=== PATIENT | female | born 1975 | race Caucasian/White ===

== ENCOUNTER 2020-05-17 21:02 | Emergency (ER) | payer OTHER ==
[~2020-05-17] VITALS: Ht 170.1 cm; Wt 99.8 kg
[~2020-05-17 21:02] MED LIST: AMOXICILLIN500 MG PO; AUGMENTIN 875 M1 TAB PO; CLARITIN10 MG PO; CORTISPORIN SUS10 ML OT; DIFLUCAN150 MG PO; PHENERGAN W/DM120 ML PO; ULTRAM50 MG PO; VIBRAMYCIN100 MG PO; VICODIN ES 7501 TAB PO
[2020-05-17] MEDS ORDERED: ROBAXIN-750750 MG PO (21:43)
[2020-05-17] MEDS ORDERED: NAPROSYN500 MG PO (21:43)
== END 2020-05-17 22:07 | disposition home or self-care (01) ==
LOC: ED 21:02
DX: S16.1XXA Strain of muscle, fascia and tendon at neck level, initial encounter (principal); S40.012A Contusion of left shoulder, initial encounter; Z98.890 Other specified postprocedural states; W00.9XXA Unspecified fall due to ice and snow, initial encounter; Y93.89 Activity, other specified; Y92.89 Other specified places as the place of occurrence of the external cause; Y99.8 Other external cause status

== ENCOUNTER 2020-08-27 15:38 | Emergency (ER) | payer OTHER ==
[~2020-08-27] VITALS: Ht 170.1 cm; Wt 101.2 kg
[~2020-08-27 15:38] MED LIST changes: +NAPROSYN500 MG PO; +ROBAXIN-750750 MG PO
[2020-08-27] MEDS ORDERED: CEFDINIR300 MG PO (17:55)
== END 2020-08-27 18:04 | disposition home or self-care (01) ==
LOC: ED 15:38
DX: H66.93 Otitis media, unspecified, bilateral (principal); Z79.899 Other long term (current) drug therapy

== ENCOUNTER 2020-10-08 18:35 | Emergency (ER) | payer OTHER ==
[~2020-10-08] VITALS: Wt 101.2 kg
[~2020-10-08 18:35] MED LIST changes: +CEFDINIR300 MG PO
[2020-10-08 19:32] LABS: BILIRUBIN Negative (Negative); BLOOD Negative (Negative); CLARITY Clear (Clear); COLOR Yellow (Yellow); GLUCOSE 3+ (Negative); KETONE Negative (Negative); LEUKO ESTERASE Negative (Negative); NITRITE Negative (Negative); SPECIFIC GRAVITY >= 1.030 (1.001-1.030)
[2020-10-08 19:41] LABS: BACTERIA 1+; WBC 16-20 wbc/hpf (0-5)
[2020-10-08 19:42] LABS: YEAST 1+
== END 2020-10-08 20:02 | disposition home or self-care (01) ==
LOC: ED 18:35
PROVIDERS: Physician Assistant
DX: B37.3 Candidiasis of vulva and vagina (principal); E11.9 Type 2 diabetes mellitus without complications; Z79.2 Long term (current) use of antibiotics; Z79.899 Other long term (current) drug therapy; Z98.890 Other specified postprocedural states

== ENCOUNTER 2020-11-11 13:47 | Emergency (ER) | payer OTHER ==
[~2020-11-11] VITALS: Wt 99.8 kg
[2020-11-11] MEDS ORDERED: Orphenadrine C100 MG PO (14:27)
[2020-11-11] MEDS ORDERED: MEDROL DOSEPAK4 MG PO (14:27)
[2020-11-11] MEDS ORDERED: CYCLOBENZAPRINE5 M3 PO (14:57)
== END 2020-11-11 14:59 | disposition home or self-care (01) ==
LOC: ED 13:47
DX: M54.42 Lumbago with sciatica, left side (principal); Z79.2 Long term (current) use of antibiotics; Z79.899 Other long term (current) drug therapy; Z98.890 Other specified postprocedural states

== ENCOUNTER 2020-11-19 07:03 | Emergency (ER) | payer OTHER ==
[~2020-11-19] VITALS: Ht 170.1 cm; Wt 99.8 kg
[~2020-11-19 07:03] MED LIST changes: +CYCLOBENZAPRINE5 M3 PO; +MEDROL DOSEPAK4 MG PO; +Orphenadrine C100 MG PO
[2020-11-19 08:20] LABS: HEMATOCRIT 49.9 % (37.0-47.0); MEAN CELL VOLUME 92.4 fl (81.0-99.0); MEAN CORPUSCULAR HGB 31.9 pg (27.0-31.0); MEAN CORPUSCULAR HGB CONC 34.5 g/dl (33.0-37.0); MEAN PLATELET VOLUME 11.6 fl (9.6-12.3); PLATELET COUNT AUTOMATED 210 10*3/uL (130-400); RED CELL DISTRI WIDTH 12.7 % (0-14.5); WHITE BLOOD COUNT 18.8 10*3/uL (4.8-10.8)
[2020-11-19 08:23] LABS: ALBUMIN 3.3 gm/dl (3.1-4.5); ALKALINE PHOSPHATASE 85 U/L (45-117); BUN 8 mg/dl (7-24); CHLORIDE 101 mmol/L (98-107); CREATININE 0.61 mg/dL (0.55-1.02); POTASSIUM 3.1 mmol/L (3.5-5.1); SGOT/AST 6 IU/L (3-35); SGPT/ALT 25 U/L (12-78); SODIUM 136 mmol/L (136-145); TOTAL PROTEIN 6.4 gm/dL (6.4-8.2)
[2020-11-19 08:52] LABS: PLATELET SUFFICIENCY NORMAL (NORMAL); TOTAL CELLS COUNTED 100 #CELLS
[2020-11-19 09:05] LABS: BILIRUBIN Negative (Negative); BLOOD Trace-Lysed (Negative); CLARITY Cloudy (Clear); COLOR Yellow (Yellow); GLUCOSE 3+ (Negative); KETONE Negative (Negative); LEUKO ESTERASE 1+ (Negative); NITRITE Positive (Negative); SPECIFIC GRAVITY >= 1.030 (1.001-1.030); UROBILINOGEN 0.2 E.U./dl (0.0-1.0)
[2020-11-19 09:18] LABS: BACTERIA 4+; WBC TNTC wbc/hpf (0-5)
[2020-11-19] MEDS ORDERED: SEPTDS PO (10:25)
[2020-11-19] MEDS ORDERED: DIFLUCAN150 MG PO (10:25)
== END 2020-11-19 10:39 | disposition home or self-care (01) ==
LOC: ED 07:03
PROVIDERS: Emergency Medicine
DX: B37.3 Candidiasis of vulva and vagina (principal); E11.65 Type 2 diabetes mellitus with hyperglycemia; N39.0 Urinary tract infection, site not specified; E66.9 Obesity, unspecified; E11.9 Type 2 diabetes mellitus without complications; F17.200 Nicotine dependence, unspecified, uncomplicated; Z79.2 Long term (current) use of antibiotics; Z79.899 Other long term (current) drug therapy; Z98.890 Other specified postprocedural states

== ENCOUNTER 2021-12-31 15:11 | Emergency (ER) | payer OTHER ==
[~2021-12-31 15:11] MED LIST changes: +SEPTDS PO
== END 2021-12-31 16:52 | disposition home or self-care (01) ==
LOC: ED 15:11
DX: U07.1 COVID-19 (principal); Z98.890 Other specified postprocedural states

== ENCOUNTER 2022-01-06 16:29 | Emergency (ER) | payer OTHER ==
[~2022-01-06] VITALS: Ht 170.1 cm; Wt 95.3 kg
[2022-01-06 18:13] LABS: BASO % 0.4 % (0.0-1.0); EOS # 0.2 10*3/uL (0.0-0.4); HEMATOCRIT 46.7 % (37.0-47.0); LYMPH # 3.2 10*3/uL (1.3-4.4); LYMPH % 34.2 % (27.0-41.0); MEAN CORPUSCULAR HGB 31.8 pg (27.0-31.0); MEAN CORPUSCULAR HGB CONC 35.3 g/dl (33.0-37.0); MONO # 0.6 10*3/uL (0.1-1.0); MONO % 6.5 % (3.0-9.0); NEUT # 5.3 10*3/uL (2.3-7.9); NEUT % 56.7 % (47.0-73.0); PLATELET COUNT AUTOMATED 156 10*3/uL (130-400); RED BLOOD COUNT 5.19 10*6/uL (4.10-5.10); RED CELL DISTRI WIDTH 12.4 % (0-14.5); WHITE BLOOD COUNT 9.3 10*3/uL (4.8-10.8)
[2022-01-06 18:25] LABS: ALKALINE PHOSPHATASE 63 U/L (45-117); BUN 8 mg/dl (7-24); CHLORIDE 104 mmol/L (98-107); CREATININE 0.72 mg/dL (0.55-1.02); POTASSIUM 3.2 mmol/L (3.5-5.1); SGOT/AST 17 IU/L (3-35); SGPT/ALT 28 U/L (12-78); SODIUM 139 mmol/L (136-145); TOTAL PROTEIN 6.7 gm/dL (6.4-8.2)
== END 2022-01-06 20:18 | disposition home or self-care (01) ==
LOC: ED 16:29
PROVIDERS: Nurse Practitioner Family
DX: U07.1 COVID-19 (principal)